=== PATIENT | male | born 1995 | race Two or more races ===

== ENCOUNTER 2017-08-30 14:54 | Emergency (ER) | payer OTHER ==
[2017-08-30] MEDS ORDERED: Ketorolac 60 MG/2 ML SDV IM ONE (15:17)
--- NOTE | 2017-08-30 15:33 | EDM.PDOC ---
ED HPI GENERAL MEDICAL PROBLEM - General Chief Complaint: Back Pain or Injury Stated Complaint: LOWER BACK PAIN Time Seen by Provider: 08/30/17 15:09 Source of Information: Reports: Patient History Limitations: Reports: No Limitations - History of Present Illness INITIAL COMMENTS - FREE TEXT/NARRATIVE: HISTORY AND PHYSICAL: History of present illness: Patient is a 22-year-old male who presents to the emergency room with complaints of lumbar back pain. He states while at work he was swinging a 4 pound hammer and had into the lumbar back area. Reports every time he swung the hammer he would have back pain. 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 Patient denies any numbness or tingling. Pain does not radiate (localized to mid/lumbar back). Denies any urinary or fecal incontinence. Denies any previous back injury or pain. No recent falls, trauma or injury. Review of systems: As per history of present illness and below otherwise all systems reviewed and negative. Past medical history: As per history of present illness and as reviewed below otherwise noncontributory. Surgical history: As per history of present illness and as reviewed below otherwise noncontributory. Social history: No reported history of drug or alcohol abuse. Family history: As per history of present illness and as reviewed below otherwise noncontributory. Physical exam: Gen.: Well-developed and well-nourished 22-year-old male. Alert and oriented. Nontoxic appearing and in no acute distress. HEENT: Atraumatic, normocephalic, pupils reactive, negative for conjunctival pallor or scleral icterus, mucous membranes moist, throat clear, neck supple, nontender, trachea midline. Lungs: Clear to auscultation, breath sounds equal bilaterally, chest nontender. Heart: S1S2, regular rate and rhythm Abdomen: Soft, nondistended, nontender. Negative for masses or hepatosplenomegaly. Negative for costovertebral tenderness. Pelvis: Stable nontender. Genitourinary: Deferred. Rectal: Deferred. C-spine/Back: No pinpoint vertebral tenderness upon palpation. No crepitus, step -offs or obvious deformities. Able to ambulate on heels and tippytoe's without any difficulty. Extremities: Atraumatic, moves all extremities per self. Able to flex and extend at the waist. Able to twist side to side. Denies any numbness or tingling to the lower extremities. Strong pedal pulses bilaterally. negative for cords or calf pain. Neurovascular unremarkable. Neuro: Awake, alert, oriented. Cranial nerves II through XII unremarkable. Cerebellum unremarkable. Motor and sensory unremarkable throughout. Exam nonfocal. Since patient did not have any trauma, fall or injury to the back to his physical examination is benign - no x-ray is warranted at this time. The patient Toradol for pain. Will be discharged home and requested follow-up with occupational health or primary care for further evaluation if needed. Diagnostics: [] Therapeutics: Toradol Impression: Back pain Plan: 1. Cataflam 50 mg one tab 3 times a day with food as needed for pain management. Ice for the first 24 hours and then alternating ice and heat as desired. 2. Follow up with primary care or occupational health as needed. Return to the ED as needed and as discussed. Definitive disposition and diagnosis as appropriate pending reevaluation and review of above. lower midback pain Pain Score (Numeric/FACES): 8 - Related Data Allergies Allergy/AdvReac Type Severity Reaction Status Date / Time No Known Allergies Allergy Verified 08/30/17 15:10 Home Meds: Home Meds . [No Known Home Meds] 08/30/17 [History] Past Medical History - Past Health History Medical/Surgical History: Denies Medical/Surgical History Social & Family History - Family History Family Medical History: Noncontributory - Tobacco Use Smoking Status *Q: Never Smoker - Caffeine Use Caffeine Use: Reports: None - Recreational Drug Use Recreational Drug Use: No ED ROS GENERAL - Review of Systems Review Of Systems: ROS reveals no pertinent complaints other than HPI. ED EXAM,LOWER BACK PAIN/INJURY - Physical Exam Exam: See Below (See dictation) Course - Vital Signs Last Recorded V/S: Last Vital Signs Temp 98.4 F 08/30/17 15:11 Pulse 83 08/30/17 15:11 Resp 18 08/30/17 15:11 BP 108/74 08/30/17 15:11 Pulse Ox 100 08/30/17 15:11 - Orders/Labs/Meds Meds: Medications Discontinued Medications Generic Name Dose Route Start Last Admin Trade Name Freq PRN Reason Stop Dose Admin Ketorolac Tromethamine 60 mg 08/30/17 15:17 Toradol IM 08/30/17 15:18 ONETIME ONE Departure - Departure Time of Disposition: 15:51 Disposition: Home, Self-Care 01 Clinical Impression: Lumbar back pain - Discharge Information Referrals: PCP,None [Primary Care Provider] - Additional Instructions: My general discharge The following information is given to patients seen in the emergency department who are being discharged to home. This information is to outline your options for follow-up care. We provide all patients seen in our emergency department with a follow-up referral. The need for follow-up, as well as the timing and circumstances, are variable depending upon the specifics of your emergency department visit. If you don't have a primary care physician on staff, we will provide you with a referral. We always advise you to contact your personal physician following an emergency department visit to inform them of the circumstance of the visit and for follow-up with them and/or the need for any referrals to a consulting specialist. The emergency department will also refer you to a specialist when appropriate. This referral assures that you have the opportunity for follow-up care with a specialist. All of these measure are taken in an effort to provide you with optimal care, which includes your follow-up. Under all circumstances we always encourage you to contact your private physician who remains a resource for coordinating your care. When calling for follow-up care, please make the office aware that this follow-up is from your recent emergency room visit. If for any reason you are refused follow-up, please contact the Emergency Department at and asked to speak to the emergency department charge nurse. Primary Care [address] [place] [id number] 1. Cataflam 50 mg one tab 3 times a day with food as needed for pain management. Ice for the first 24 hours and then alternating ice and heat as desired. 2. Follow up with primary care or occupational health as needed. Return to the ED as needed and as discussed.
== END 2017-08-30 16:05 | disposition home or self-care (01) ==
LOC: MW.ED 14:54 → EDBD 14:54 → MW.ED 16:05
DX: M54.5 Low back pain (principal)
CPT/HCPCS: 96372; 99283; J1885